=== PATIENT | male | born 1995 | race Caucasian/White ===

== ENCOUNTER 2018-02-19 15:50 | Emergency (ER) | payer OTHER ==
[~2018-02-19] VITALS: Ht 180.3 cm; Wt 77.3 kg
[2018-02-19 15:57] VITALS: BP 170/77; PULSE 92; TEMP 98.5
== END 2018-02-19 18:00 | disposition home or self-care (01) ==
LOC: COL.ER 15:50
DX: S91.012A Laceration without foreign body, left ankle, initial encounter (principal); W26.8XXA Contact with other sharp object(s), not elsewhere classified, initial encounter; Y92.009 Unspecified place in unspecified non-institutional (private) residence as the place of occurrence of the external cause